=== PATIENT | female | born 1955 | race Caucasian/White ===

== ENCOUNTER 2024-04-22 20:28 | Emergency (ER) | payer MEDICARE ==
[~2024-04-22] VITALS: Ht 182.9 cm; Wt 99.8 kg
[2024-04-22 23:35] VITALS: BP 149/79; TEMP 98.3; O2SAT 98
== END 2024-04-22 23:35 | disposition home or self-care (01) ==
LOC: ER 20:35
DX: H92.02 Otalgia, left ear (principal)